=== PATIENT | female | born 1970 | race Caucasian/White ===

== ENCOUNTER 2024-09-06 18:04 | Emergency (ER) | payer OTHER, SELFPAY ==
--- NOTE | ~2024-09-06 | XR_ITS ---
HISTORY: medial plantar heel pain 3 weeks, no injury COMPARISON: None TECHNIQUE: 4 views of the left foot were performed FINDINGS: No acute fracture or dislocation is appreciated. The first metatarsal-phalangeal angle measures 33 degrees, consistent with hallux valgus (normal is l ess than 15 degrees). Os trigonum is also present for which ankle impingement syndrome is suspected. The base of the fifth metatarsal is intact. A 5.8 mm calcaneal spur is present. No significant soft tissue swelling is present. IMPRESSION: Hallux valgus. Os trigonum. 6mm calcaneal spur Reviewed, dictated and finalized at location A.
[2024-09-06 18:17] VITALS: BP 148/79; PULSE 70; RESP 16; TEMP 36.6; O2SAT 100
--- NOTE | 2024-09-06 18:31 | ED.EXTPRO ---
HPI - Extremity Problem General Chief complaint: Extremity Problem,Nontraumatic Stated complaint: Left foot pain Time Seen by Provider: 09/06/24 18:20 Source: patient and RN notes reviewed Mode of arrival: ambulatory Limitations: no limitations History of Present Illness HPI Narrative: 53-year-old female presents Express Care complaining of left plantar heel pain for approximately 3 weeks. She denies any apparent injury. Patient reports been worse since she has been on her feet a lot lately for work and she recently went to [place] another walk around a lot reported worsening pain to her left heel especially with ambulation. Patient states that she does feel pain while resting as well. Patient denies any numbness and tingling, or her reports the pain is nonradiating. Patient denies any significant past medical history. Patient tried ibuprofen with some relief. Related Data Home Medications ?Medication ?Instructions ?Recorded ?Confirmed ?Last Taken ?Type No Home Medications 09/06/24 09/06/24 Unknown History Allergies Allergy/AdvReac Type Severity Reaction Status Date / Time No Known Allergies Allergy Verified 09/06/24 18:16 Review of Systems Review of Systems: CONSTITUTIONAL: Denies fever, chills, or sweats. EYES: Denies visual changes, redness, or discharge. ENT: Denies rhinorrhea, congestion, sore throat, or otalgia. CARDIOVASCULAR: Denies chest pain, palpitations, or edema. RESPIRATORY: Denies cough or dyspnea. GASTROINTESTINAL: Denies abdominal pain, nausea, vomiting, or diarrhea. GENITOURINARY: Denies dysuria or hematuria. SKIN: Denies rash, wound, or itching. MUSCULOSKELETAL: Denies back pain, joint pain, or myalgia. Positive for left foot pain. NEUROLOGIC: Denies headache, numbness, or weakness. PSYCHIATRIC: Denies anxiety or depression. All other systems reviewed are negative, except as documented in HPI. [facility] Past Medical History Medical History Encounter for screening colonoscopy BMI 33.0-33.9,adult Hypercholesterolemia Elevated fasting glucose BMI 35.0-35.9,adult Anxiety Vitamin B12 deficiency anemia Breast cancer screening by mammogram Encounter for wellness examination in adult Adult BMI 39.0-39.9 kg/sq m Encounter for screening for other viral diseases Gastritis Abdominal pain Surgical History Surgical History H/O tubal ligation (~1996) Family History Family History Mother Angina pectoris Father Acute myocardial infarction Diabetes mellitus Grandparent Cancer Grandparent Acute myocardial infarction Grandparent Leukemia Grandparent Acute myocardial infarction Social History Social History Smoking status: Never smoker Alcohol intake: current Drinks per week: 3 Substance use: never Substance use type: does not use Lack of Transportation: No Lack of Food: Never True Current Housing: I Have Housing Concerned About Future Housing: No Difficulty Paying Gas/Electric Bills: No Difficulty Paying for Meds: No Currently Unemployed: No Education: High School Diploma/GED Difficulty w/ Childcare or Family Care: No Living arrangements: with family Spiritual care concerns: No Comments At the time of my signature, I reviewed and agree with the nursing past medical, surgical, social, and family history. There is no relevant family history pertinent to the patient complaint. Exam Narrative: GENERAL: This is a well-nourished, well-developed adult, in no apparent distress. They are non ill-appearing, nontoxic appearing. HEAD: normocephalic, atraumatic. EYES: Sclera clear/white. Vision is grossly intact. Conjunctiva normal. Extraocular movement intact. EARS: External ears normal Hearing grossly intact. NOSE: External nose normal THROAT: Mucous membranes moist NECK: Neck supple CARDIOVASCULAR: Regular rate and rhythm RESPIRATORY: Respiratory rate normal, respiratory effort nonlabored, no respiratory distress NEURO: awake, alert, and oriented to person, place and time. There were no obvious focal neurologic abnormalities. EXTREMITIES: Left foot: No obvious deformity, injury, swelling, bruising, redness. Normal range of motion. Tenderness to palpation to the medial plantar heel. Capillary refill less than 3 seconds. Left pedal Pulse 2 +palpable. Normal sensation. Neurovascular status intact distal injury. Patient is able wiggle her toes. Normal dorsiflexion plantar flexion. BACK: Nontender without deformity. Course Course Emergency Course: Portions of this record may have been created with voice recognition software Level of Care: Express Care Visit Vital Signs Vital signs: Vital Signs Temperature 97.9 F 06/19/25 18:17 Pulse Rate 70 09/06/24 18:17 Respiratory Rate 16 09/06/24 18:17 Blood Pressure 148/79 H 09/06/24 18:17 Pulse Oximetry 100 09/06/24 18:17 Oxygen Delivery Room Air 09/06/24 18:17 Temperature 97.9 F 09/06/24 18:17 Pulse Rate 70 09/06/24 18:17 Respiratory Rate 16 09/06/24 18:17 Blood Pressure 148/79 H 09/06/24 18:17 Pulse Oximetry 100 09/06/24 18:17 Oxygen Delivery Room Air 09/06/24 18:17 Reviewed MDM - Extremity (Nontraumatic) MDM Narrative Medical decision making narrative: X-ray left foot shows no evidence of acute fractures. Did show patient has hallux valgus, calcaneal heel spur, and Os trigonum. It is possible patient may have posterior ankle impingement syndrome however most her pain is on the medial side of her left heel. Possibly plantar fasciitis or pain from her bone spur. Recommend follow-up with concrete float maker and conservative therapy. Discussed physical exam findings. Advised supportive measures and signs/symptoms to go to the ER. Pt is appropriate for outpt treatment and f/u. Differential Diagnosis Differential diagnosis: Likely other (Plantar fasciitis, tendinitis, arthritis, bone spurs) Imaging Data Radiologist's impression: ITS Impressions Foot X-Ray 09/06/24 18:37 IMPRESSION: Hallux valgus. Os trigonum. 6mm calcaneal spur Critical Care Time Critical Care Time Critical Care Time: No Discharge Plan Discharge Clinical Impression: Calcaneal spur of left foot, Hallux valgus of left foot, Os trigonum Patient Disposition: Home Condition: Stable Instructions: Bunion (ED), Plantar Fasciitis (ED), Plantar Fasciitis Exercises (ED) Additional Instructions: Your x-ray is negative for any evidence of of a fracture. It did show you have a bunion to your left great toe. It also showed bone spurs on your heel and that you have Os trigonum. Rest and elevate the leg; bear weight as tolerated Apply ice 15-20 minute intervals several times a day Wear good supportive shoes, and supportive heel inserts. Motrin 600mg -800mg every 8 hours, alternate with Tylenol 1000mg every 8 hours as needed Follow up with your primary care provider or concrete float maker in 1 week for further evaluation and management. Patient Language: Albanian Prescriptions: No Action No Home Medications Follow-up/Referrals: Kirk Arriola DPM [Physician] - Alden Petersen MD [Primary Care Provider] - Time of Disposition: 19:14
== END 2024-09-06 19:24 | disposition home or self-care (01) ==
PROVIDERS: PCP Family Medicine
DX: M77.32 Calcaneal spur, left foot (principal); Q68.8 Other specified congenital musculoskeletal deformities; E78.00 Pure hypercholesterolemia, unspecified
CPT/HCPCS: 73630; 99213; G0463